=== PATIENT | female | born 1935 | race Caucasian/White ===

== ENCOUNTER 2018-10-24 06:01 | Observation (INO) ==
--- NOTE | 2018-10-15 10:39 | XRay Report ---
XR chest 2V routine HISTORY: pre-op m51.36 COMPARISON: None. FINDINGS: The heart is normal in size. No pleural effusions. No pneumothorax. The right lung is clear . Small linear density at the left lung base favor subsegmental atelectasis or scarring. Otherwise, t he left lung is clear. IMPRESSION: No acute process. Electronically signed by: Franklyn Gaxiola M.D. 10/15/2018 10:38 AM
[2018-10-15 10:46] LABS: Basophils # (auto) 0.02 K/uL (0-0.2); Basophils % (auto) 0.3 %; Eosinophils # (auto) 0.03 K/uL (0-0.5); Eosinophils % (auto) 0.5 %; Hematocrit (blood only) 36.2 % (37-47); Hemoglobin 11.8 g/dL (12.0-16.0); Immature Granulocytes # (auto) 0.01 K/uL (0.00-0.02); Immature Granulocytes % (auto) 0.2 %; Lymphocytes # (auto) 1.25 K/uL (1.2-3.4); Lymphocytes % (auto) 19.8 %; Mean Corpuscular Hgb Conc 32.6 g/dL (32-36); Mean Corpuscular Volume 87.2 fL (80-100); Mean Platelet Volume 9.2 fL (7.4-10.4); Monocytes % (auto) 6.3 %; Neutrophils # (auto) 4.61 K/uL (1.4-6.5); Neutrophils % (auto) 72.9 %; Platelet Count 338 K/uL (130-400); RDW Coefficient of Variation 16.1 % (11.5-14.5); RDW Standard Deviation 51.8 fL (36.4-46.3); Red Blood Count 4.15 M/uL (4.2-5.4); White Blood Count 6.32 K/uL (4.8-10.8)
[2018-10-15 10:55] LABS: Partial Thromboplastin Time 25.8 Seconds (21.0-31.0); Prothrombin Time 9.9 Seconds (9.0-12.0)
[2018-10-15 13:53] LABS: BUN Creatinine Ratio 12.3 (10-20); Calcium 9.3 mg/dl (8.5-10.1); Creatinine Clr Calc Pharmacy 38.8 ml/min; Est GFR (African American) 59.6; Est GFR (Non-African American) 51.4; Potassium 4.2 mmol/L (3.5-5.1)
--- NOTE | 2018-10-16 11:38 | Anesthesiology Consultation ---
Date of Service October 16, 2018 Assessment & Plan (1) Encounter for pre-operative examination: Chart Review Chart Review: Acceptable Risk for Surgery and Patient NOT seen in Pre Admission Testing Consults Requested none History Surgery Operation Date: 10/24/18 07:30 Proposed Procedures p L3-L4, L4-L5 Laminectomy - Ignacio Nolen DO Height/Weight Height: 5 ft 3 in Weight: 67.132 kg Allergies Allergy/AdvReac Type Severity Reaction Status Date / Time latex Allergy Unknown Rash Verified 10/15/18 11:38 Penicillins Allergy Unknown Rash Verified 10/15/18 11:38 pollen extracts Allergy Unknown STUFFY Verified 10/15/18 11:38 NOSE, WATER EYES Medications Home Medications Medication Instructions Recorded Confirmed Last Taken calcium carbonate 600 mg calcium 600 mg PO DAILY tab 08/06/18 10/15/18 Unknown (1,500 mg) tablet ergocalciferol (vitamin D2) 50,000 50,000 units PO MONTHLY cap 08/06/18 10/15/18 Unknown unit capsule atorvastatin 40 mg tablet 40 mg PO DAILY 90 Days #90 tab 09/05/18 10/15/18 Unknown zolpidem 10 mg tablet 10 mg PO HS #30 tab 09/24/18 10/15/18 Unknown hydromorphone 4 mg PO BID PRN 10/15/18 10/15/18 Unknown levothyroxine 50 mcg PO QAM 10/15/18 10/15/18 Unknown multivitamin 1 cap PO DAILY 10/15/18 10/15/18 Unknown omeprazole 20 mg PO QAM 10/15/18 10/15/18 Unknown Past Medical History Medical History Acid reflux Borderline diabetes History of bladder cancer Hyperlipidemia Spinal stenosis Thyroid disease Past Family History Family History Father Leukemia Brother Skin cancer Prostate cancer Lymphoma Malignant neoplasm of eye Sister Malignant neoplasm of eye Mother Diabetes Family/Other Cancer Past Surgical History Surgical History History of bladder surgery History of blepharoplasty History of colonoscopy Hx of cataract removal with insertion of prosthetic lens R AND L Hx of section Social History Smoking Status: Never smoker Do You Dip or Chew Tobacco: No Hx Alcohol Use: Yes (NONE OVER THE LAST 3 - 4 WEEKS) alcohol intake frequency: 0-2 drinks per day Hx Substance Use: No substance use type: prescription drug Testing Laboratory Results 10/15/18 09:39 10/15/18 09:39 PT 9.9 Seconds (9.0-12.0) 10/15/18 09:39 INR 1.0 (0.9-1.1) 10/15/18 09:39 APTT 25.8 Seconds (21.0-31.0) 10/15/18 09:39 Electrocardiogram Date: 10/15/18 Findings: + NSR @ (72) Chest X-Ray Date: 10/15/18 Findings: + NAD
--- NOTE | 2018-10-22 19:10 | Consultation Report ---
DATE OF ADMISSION: 10/24/2018 CHIEF COMPLAINT: Lower extremity difficulty, paresthesias, numbness and tingling. HISTORY OF PRESENT ILLNESS: Isha is delightful. She is 83. She is miserable, can barely function, stand, walk or even sitting. She is having semi-urgent surgery on the . PAST MEDICAL HISTORY: Bladder CA, usual childhood diseases. No high cholesterol. No hypertension, COPD. PAST SURGICAL HISTORY: , bladder surgery. ALLERGIES: LATEX, PENICILLIN. FAMILY HISTORY: Diabetes. SOCIAL HISTORY: , 2 drinks daily. No tobacco. Active lifestyle up until this pain. REVIEW OF SYSTEMS: Denies any fevers, sweats, chills, weight loss or gain. No chest pain, palpitations. No nausea, vomiting. No urgency, frequency, memory loss. Admits to joint pain, weakness, cramping and muscle pain. MEDICATIONS: Lipitor, vitamin D, multivitamin, calcium, omeprazole: PHYSICAL EXAMINATION: GENERAL: She is 5 feet 3 inches, 149 pounds. She is in distress. HEENT: Normal. VITAL SIGNS: Blood pressure 130/80, pulse 80, respirations 16. CARDIAC: Normal S1, S2, no S3. LUNGS: Clear to auscultation. No rales, rhonchi, wheezing. ABDOMEN: Soft, nontender. NEUROLOGIC: She has weakness in the right hand side of her quadriceps. She has decreased knee jerk reflexes. She has pain with flexion and extension. She has a limp with ambulation. IMPRESSION: Severe stenosis of the spine. PLAN: Includes a lumbar spine laminectomy L3-L5, lumbar spine on 10/24/2018.
[~2018-10-24 06:01] MED LIST: CEFAZOLIN 2000MG 2,000 MG/15 ML SYR IV SCH; CEFAZOLIN: ALLERGY NOTED TO ORDERED MEDICATION SCH; LR 15ML/HR IV SCH; SODIUM CHLORIDE 0.9% 1,000 ML IV SCH
[2018-10-24] MEDS ORDERED: LIDOCAINE HCL 2% 2 ML VIAL/AMP(20MG/ML) INFIL ONE (07:00)
[2018-10-24] MEDS ORDERED: DEXAMETHASONE SOD INJ 4 MG/ML VIAL ONE (07:00)
[2018-10-24] MEDS ORDERED: fentaNYL citrate 100 MCG/2 ML VIAL ONE (07:00)
[2018-10-24] MEDS ORDERED: NEOSTIGMINE METHYLSULFATE 5 MG/5 ML SYR ONE (07:00)
[2018-10-24] MEDS ORDERED: GLYCOPYRROLATE 0.2 MG/ML VIAL ONE (07:00)
[2018-10-24] MEDS ORDERED: PROPOFOL IV EMULSION 10 MG/ML 20 ML VIAL IV ONE (07:00)
[2018-10-24] MEDS ORDERED: ONDANSETRON INJ 2 MG/ML 2 ML VIAL ONE (07:00)
[2018-10-24] MEDS ORDERED: VANCOMYCIN HCL 1000MG/20ML VIAL ONE (07:03)
[2018-10-24] MEDS ORDERED: THROMBIN FOR SOLN 20000 UNIT KIT ONE ×2 (07:04→07:05)
[2018-10-24] MEDS ORDERED: BUPIVACAINE/EPINEPHRINE 0.5% MPF 1:200,000 30 ML VIAL ONE (07:04)
[2018-10-24] MEDS ORDERED: BACITRACIN INJ 50,000 UNIT VIAL ONE (07:04)
[2018-10-24] MEDS ORDERED: GELATIN SPONGE SZ 100 ONE (07:04)
--- NOTE | 2018-10-24 07:07 | History & Physical Bridge Note ---
Date of Service October 24, 2018 History & Physical Bridge Note I have examined the patient, reviewed the History & Physical and in the interval since the performance of the History & Physical I have noted the following changes of clinical significance: no changes noted
[2018-10-24] MEDS ORDERED: CEFAZOLIN 2,000 MG/15 ML IV PUSH IV ONE (07:13)
--- NOTE | 2018-10-24 07:27 | XRay Report ---
XR chest 1V portable CLINICAL HISTORY: rales on exam dyspnea COMPARISON STUDY: 10/15/2018 FINDINGS: Slight interstitial prominence left base. Lungs otherwise appear clear. Diaphragms are smoo th. IMPRESSION: Slight interstitial prominence left base. Otherwise negative study. The above report was generated using voice recognition software. It may contain grammatical, syntax or spelling errors. Electronically signed by: Colton Cazares M.D. 10/24/2018 7:26 AM
[2018-10-24] MEDS ORDERED: ALBUT/IPRATROP 3MG/0.5MG NEB 3 ML VIAL NEB STA (08:14)
--- NOTE | 2018-10-24 08:31 | History & Physical Report ---
Date of Service October 24, 2018 Assessment & Plan (1) Hypoxia: - Admit to obs status, lumbar surgical intervention was cancelled. - Pt. has decreasing O2 sats -- dropping to 90-92%; denies shortness of breath, chest pain. - No history of chronic lung disease. - CXR showed slight interstitial prominence of the left base, was otherwise negative. - CT chest showed mild bronchial wall thickening and endobronchial debris, cysts, consider chronic aspiration; multiple pulm nodules measuring up to 11 mm. - TTE showed preserved EF, no significant valvular abnormalities; BNP was within normal limits. - EKG with NSR, anterolateral T wave changes. - Pulmonary consulted; plan for overnight pulse ox study and 2-step test prior to discharge. Will also need PFTs early next week and outpatient appointment for further evaluation. Also recommending labs to look for sarcoidosis, other autoim mune studies (2) Pulmonary nodules: - Multiple pulmonary nodules noted on CT of chest. - Pulm consulted for recs; does have h/o bladder cancer. (3) Lumbar stenosis: - Planned lumbar procedure today, cancelled due to acute changes. - Will need follow up with Dr. Nolen to re-schedule procedure. (4) Hypothyroidism: - Continue Levothyroxine 50 mcg daily. - TSH is 1.23. (5) Vitamin D deficiency: - Vit D monthly replacement. (6) GERD without esophagitis: - PPI daily. (7) HLD (hyperlipidemia): - Continue statin as prescribed. (8) Diabetes mellitus type II, controlled: - Most recent A1C was 6.6 in May 2018. - Will hold SSI coverage/gluc checks and monitor AM glucose levels. - Repeat A1C is 6.7. (9) Insomnia: - Continue Ambien 10 mg qhs as prescribed. -continue trazodone (10) Bladder cancer: - History of bladder cancer, s/p bladder surgery. - Pulm nodules noted on CT chest -- will need close follow up. (11) DVT prophylaxis: - SCDs; hold pharmacologic ppx for possible procedure. Dispo: Obs status, med/surg with tele for evaluation of hypoxia. History of Present Illness Chief Complaint: Hypoxia Primary Care Provider: Shaggy Carlin MD Mrs. Kaufman is an 83 year old female with past medical history of GERD, DM, HLD, Hypothyroidism, Bladder cancer who presented for a planned lumbar procedure with Dr. Nolen. Pt. was noted to have low oxygen saturations during pre op evaluation. O2 sat decreasing to 90-92% on room air. Pt. denies chest pain, SOB at rest or with exertion, lightheadedness, palpitations, cough, N/V, diarrhea or constipation, dysuria or hematuria. She had a recent URI with nasal congestion 6-8 weeks ago but symptoms resolved with abx treatment. Denies h/o tobacco abuse, chronic lung disease. Allergies Allergy/AdvReac Type Severity Reaction Status Date / Time latex Allergy Unknown Rash Verified 10/24/18 06:22 Penicillins Allergy Unknown Rash Verified 10/24/18 06:22 pollen extracts Allergy Unknown STUFFY Verified 10/24/18 06:22 NOSE, WATER EYES Home Medications Home Medications Medication Instructions Recorded Confirmed Type calcium carbonate 600 mg calcium 600 mg PO DAILY tab 08/06/18 10/24/18 History (1,500 mg) tablet ergocalciferol (vitamin D2) 50,000 50,000 units PO MONTHLY cap 08/06/18 History unit capsule atorvastatin 40 mg tablet 40 mg PO DAILY 90 Days #90 tab 09/05/18 10/24/18 Rx hydromorphone 4 mg PO BID PRN 10/15/18 10/24/18 History levothyroxine 50 mcg PO QAM 10/15/18 10/24/18 History multivitamin 1 cap PO DAILY 10/15/18 10/24/18 History omeprazole 20 mg PO QAM 10/15/18 10/24/18 History zolpidem 10 mg tablet 10 mg PO HS #30 tab 10/22/18 10/24/18 Rx trazodone 100 mg PO HS 10/25/18 10/25/18 History Past Med/Surg History Medical History Acid reflux Borderline diabetes History of bladder cancer Hyperlipidemia Spinal stenosis Thyroid disease Surgical History History of blepharoplasty History of colonoscopy History of bladder surgery Hx of cataract removal with insertion of prosthetic lens R AND L Hx of section Family History Father Leukemia Brother Skin cancer Prostate cancer Lymphoma Malignant neoplasm of eye Sister Malignant neoplasm of eye Mother Diabetes Family/Other Cancer Social History Preferred Language: Tajik Communication Ability: Effective 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 Beliefs That Will Affect Care: None marital status: Current Living Situation: Spouse current occupational status: retired Other Information That Helps Us Care for You: No Feels Safe at Home: Yes Safety Concerns: Feels Safe At This Time Smoking Status: Never smoker Do You Dip or Chew Tobacco: No ; Second Hand Exposure: No ; Hx Alcohol Use: No (NONE OVER THE LAST 3 - 4 WEEKS) Hx Substance Use: No Childhood Exposure to Second-Hand Smoke: No caffeine: Yes Dental Care, Regularly: Yes Physical Activity Frequency: 1-2 Times per Week Seatbelt Use: always Sunscreen Use: Yes Review of Systems Review of Systems: All systems reviewed & are unremarkable except as noted in HPI & below Constitutional: no fever, no chills, no fatigue and no weakness Respiratory: no cough, no dyspnea, no dyspnea on exertion and no wheezing Cardiovascular: no chest pain, no palpitations, no lightheadedness and no edema Gastrointestinal: no abdominal pain, no nausea, no vomiting and no constipation Genitourinary: no difficulty urinating Musculoskeletal: + back pain; no joint pain Integumentary: no non-healing lesions Neurologic: + radiating pain (Down both legs ) Physical Exam Physical Exam: General: Resting comfortably HEENT: NC/AT; PERRLA with EOMI; [place] conjunctiva, MMM. No erythema of posterior pharynx Neck: Supple and nontender Cardiac: RRR Lungs: on room air; CTA bilaterally Abdomen: Bowel normoactive X 4; Nontender to palpation Extremities: Warm. No edema present Neuro: No focal weakness Skin: No rash Results & Data Vital Signs (Past 12 Hours) Vital Signs Temp Pulse Resp BP Pulse Ox 10/24/18 06:30 36 C L 79 20 135/74 92 Diagnostic Findings XR chest 1V portable CLINICAL HISTORY: rales on exam dyspnea COMPARISON STUDY: 10/15/2018 FINDINGS: Slight interstitial prominence left base. Lungs otherwise appear clear. Diaphragms are smooth. IMPRESSION: Slight interstitial prominence left base. Otherwise negative study. Code Status & VTE Plan Code Status FULL CODE Supervising Physician Co-Signing Physician Notes PA Supervision Note: I personally saw and examined the patient. I verified all toth points and agree with PRABHA Bradshaw with the following exceptions and/or additions: Pt had cold symptoms about 6 weeks ago and was treated with prednisone. No fevers or cough since then. Is a lifelong non-smoker, no second hand smoke exposure or toxic fumes. Denies CP or SOB. Has been very sedentary the last 3-4 weeks wit her back pain. No leg pain or swelling. No h/o heart or lung issues. Review of outpt chart shows her POx is usually at 98% on room air Vitals reviewed anicteric sclerae RRR no mgr Lungs with bibasilar rales going to mid lung beth bilat, no wheezing Adb +BS soft NT ND Ext no edema or calf tenderness 83 yo female here with new onset acute hypoxic respiratory insufficiency and bibasilar rales -plan as above PG Care Time/CCT Total # of Minutes Spent Total Time Spent with Patient: Total time spent is greater than 50% in coordination of care (as documented) at patient's floor/unit and/or counseling patient:
[2018-10-24] MEDS ORDERED: MAGNESIUM HYDROXIDE SUSP 30 ML UDC PO PRN (10:10)
[2018-10-24] MEDS ORDERED: ONDANSETRON INJ 2 MG/ML 2 ML VIAL IV PRN (10:10)
[2018-10-24] MEDS ORDERED: ACETAMINOPHEN 325 MG TAB PO PRN (10:10)
[2018-10-24] MEDS ORDERED: POLYETHYLENE (MIRALAX) 17 GM PACK PO PRN (10:10)
[2018-10-24 10:35] LABS: Hemoglobin 11.3 g/dL (12.0-16.0); Mean Corpuscular Hgb Conc 32.3 g/dL (32-36); Mean Corpuscular Volume 89.1 fL (80-100); Mean Platelet Volume 8.7 fL (7.4-10.4); Platelet Count 377 K/uL (130-400); RDW Standard Deviation 52.1 fL (36.4-46.3); Red Blood Count 3.93 M/uL (4.2-5.4); White Blood Count 7.78 K/uL (4.8-10.8)
[2018-10-24 11:00] LABS: Estimated Average Glucose 146 mg/dl; Hemoglobin A1C 6.7 % (4.5-5.6)
[2018-10-24 11:12] LABS: Albumin Level 3.1 gm/dl (3.4-5.0); BUN Creatinine Ratio 13.8 (10-20); Calcium 8.6 mg/dl (8.5-10.1); Creatinine Clr Calc Pharmacy 45.4 ml/min; Est GFR (African American) 71.4; Est GFR (Non-African American) 61.6; Potassium 3.7 mmol/L (3.5-5.1)
[2018-10-24 11:15] LABS: Albumin Globulin Ratio 0.9 (0.9-2); Bilirubin,Total 0.4 mg/dl (0.2-1); Globulin 3.3 gm/dl (2.5-4.0); Total Protein 6.4 gm/dl (6.4-8.2)
[2018-10-24] MEDS: MoRPHine SULFATE 2 MG/ML CARP IV PRN ×3 (11:23→20:12)
[2018-10-24] MEDS ORDERED: OPTIRAY 320 125ml IV PRN (13:03)
[2018-10-24] MEDS ORDERED: PHENYLEPHRINE HCL 20 MG in DEXTROSE 5% 500 ML IV SCH (13:15)
--- NOTE | 2018-10-24 13:16 | CT Scan Report ---
CT angio chest PE protocol CLINICAL HISTORY: 83 years-old Female presenting with shortness of breath, abnormal respiratory sound s on exam, clinical concern for pulmonary embolus. TECHNIQUE: Multidetector CT angiography of the chest was performed after administration of intravenou s contrast. 3-D volumetric and/or maximum intensity projection (MIP) images were subsequently reconst ructed for review. IV contrast: 77 mL of Optiray 320. One or more dose lowering techniques were used consistent with the principles of ALARA (as low as reasonably achievable), including automatic exposu re control, mA or kV adjustment to individual patient size, and/or use of iterative reconstruction. COMPARISON: Chest x-ray performed earlier the same day. CT DOSE (mGy.cm): The estimated cumulative dose is 230.42 mGy.cm. 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 Pulmonary vasculature: The study is adequate for assessment of the pulmonary vascular tree. No filling defect within the pul monary arteries to suggest embolus. Main pulmonary artery is not enlarged. No flattening of the inter ventricular septum. No intracardiac filling defect. No reflux of contrast into the hepatic veins. Remaining chest: Soft tissues: Normal thyroid and thoracic inlet. No axillary, supraclavicular, mediastinal, or hilar lymphadenopathy. Mild atherosclerosis of the aortic arch. Normal heart size. Coronary artery calcific ation. No pericardial or pleural effusion. Small hiatal hernia. Lungs and airways: No pneumothorax. Central airways patent. Mild lower lobe bronchial wall thickening and trace subsegmental endobronchial debris. Few pulmonary cysts or emphysematous changes in the low er lobes. Solid 5 mm peripheral right lower lobe nodule (series 4 image 101). Subpleural solid 6 mm p osterior basal right lower lobe nodule (series 4 image 91). Ovoid solid 11 mm nodule in the anterior segment of the right upper lobe (series 4 image 156). Numerous additional scattered smaller solid pul monary nodules bilaterally. Additional dependent changes in the bilateral lower lobes likely atelecta sis. Mild mosaic attenuation. Trace interlobular septal thickening at the lung bases. Respiratory mot ion artifact mildly degrades evaluation of the lung parenchyma. Musculoskeletal: Degenerative changes of the spine. IMPRESSION: 1. No evidence of pulmonary embolus. 2. Mild lower lobe predominant bronchial wall thickening and trace subsegmental endobronchial debris could suggest bronchitis or chronic aspiration. No focal infiltrate to suggest pneumonia. 3. Multiple solid bilateral pulmonary nodules measuring up to 11 mm. Follow-up per [employer] y 2017 recommendations below. 4. Small hiatal hernia. Electronically signed by: Carlo Duvall M.D. 10/24/2018 1:14 PM
--- NOTE | 2018-10-24 16:08 | Pulmonary Consultation ---
Date of Consultation October 24, 2018 Assessment & Plan (1) Interstitial lung disease: Interstitial lung disease is suggested based upon exam and CAT scan findings. She is without symptoms. She has mild hypoxia. Plan is as follows: 1. Sed rate, NAYANA screen, RA, TAO, hypersensitivity pneumonitis screen 2. My office will arrange for complete pulmonary function test to be done as soon as possible. We do want to be able to clear the patient as soon as feasible because of her pain. 3. I will follow-up as an outpatient. (2) Hypoxia: The etiology of the hypoxia is not clear. Her exam is definitely abnormal and suggestive for interstitial lung disease. The plan is as follows: 1. Advise overnight pulse oximetry study on room air 2. Arrange for a two-step prior to discharge. It is suspected she likely will be discharged tomorrow. (3) Pulmonary nodules: Will need a follow-up CAT scan in 3 to 4 months. My office will arrange this. History of Present Illness Attending Physician: Ignacio Nolen, History of Present Illness Pulmonary consultation is requested regarding hypoxia. Patient is an 83-year-old female who is being prepared today to undergo low back surgery. For the past several weeks she has had a fairly sudden onset of pain in the low back extending to the right hip and down to the right knee. She was found to have severe stenosis of the spine. The surgery was to be today. She was found to have oxygen saturations on room air between 90 and 92%. The surgery was canceled. It was found that her saturation would come up to 97% with deep breathing. The patient denies shortness of breath. She denies ever having had any lung trouble before. She had been playing golf 3 times per week until recently when she developed the back pain. Earlier this summer she did a [place] Walk with her without any shortness of breath. She has no cough. There is been no sputum production or hemoptysis. She denies chest pains. She denies chills fevers or sweats. She is never been told of any lung problems. The patient has no history of smoking ever. 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 [place] did [place]. The patient and her live at the [facility]. She previously had been living in [place] for approximately 12 years until they moved back to [place] in 2018. She did not have any history of coccidiomycosis when she was out there. The patient does snore. There has been no observed apneas. She does have chronic insomnia. This started she states when she could no longer take hormonal replacement therapy for hot flashes. She has been on zolpidem and trazodone. Zolpidem is 10 mg nightly and the trazodone is 100 mg nightly. With these medication she would sleep through. Without them she would have difficulty falling asleep and staying asleep. She gets up at 6 AM. Her sleep has been more disrupted recently since having the back pain. Generally she was feeling refreshed and she rarely napped. Allergies Allergy/AdvReac Type Severity Reaction Status Date / Time latex Allergy Unknown Rash Verified 10/24/18 06:22 Penicillins Allergy Unknown Rash Verified 10/24/18 06:22 pollen extracts Allergy Unknown STUFFY Verified 10/24/18 06:22 NOSE, WATER EYES Home Medications Home Medications Medication Instructions Recorded Confirmed Type calcium carbonate 600 mg calcium 600 mg PO DAILY tab 08/06/18 10/24/18 History (1,500 mg) tablet ergocalciferol (vitamin D2) 50,000 50,000 units PO MONTHLY cap 08/06/18 10/24/18 History unit capsule atorvastatin 40 mg tablet 40 mg PO DAILY 90 Days #90 tab 09/05/18 10/24/18 Rx hydromorphone 4 mg PO BID PRN 10/15/18 10/24/18 History levothyroxine 50 mcg PO QAM 10/15/18 10/24/18 History multivitamin 1 cap PO DAILY 10/15/18 10/24/18 History omeprazole 20 mg PO QAM 10/15/18 10/24/18 History zolpidem 10 mg tablet 10 mg PO HS #30 tab 10/22/18 10/24/18 Rx Patient History Medical History Acid reflux Borderline diabetes History of bladder cancer Hyperlipidemia Spinal stenosis Thyroid disease Surgical History History of blepharoplasty History of colonoscopy History of bladder surgery Hx of cataract removal with insertion of prosthetic lens R AND L Hx of section Family History Father Leukemia Brother Skin cancer Prostate cancer Lymphoma Malignant neoplasm of eye Sister Malignant neoplasm of eye Mother Diabetes Family/Other Cancer Social History Preferred Language: Nauruan Communication Ability: Effective 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 Beliefs That Will Affect Care: None marital status: Current Living Situation: Spouse current occupational status: retired Other Information That Helps Us Care for You: No Feels Safe at Home: Yes Safety Concerns: Feels Safe At This Time Smoking Status: Never smoker Do You Dip or Chew Tobacco: No ; Second Hand Exposure: No ; Hx Alcohol Use: No (NONE OVER THE LAST 3 - 4 WEEKS) Hx Substance Use: No Childhood Exposure to Second-Hand Smoke: No caffeine: Yes Dental Care, Regularly: Yes Physical Activity Frequency: 1-2 Times per Week Seatbelt Use: always Sunscreen Use: Yes Review of Systems Review of Systems: General: Energy level has been good until her back pain recently. Denies chills fever sweats. No weight loss or weight gain. Neurologic: Only positive for pain down the right leg. Ophthalmic: Has had cataract surgery but otherwise negative ENT: Denies nasal or sinus symptoms Cardiac: Denies chest pain or palpitations Pulmonary: As noted in history of present illness GI: Denies heartburn nausea vomiting or diarrhea. She is having constipation since taking pain meds for the back pain. : Denies complaints. No hematuria. She does have a prior history of bladder cancer. Musculoskeletal: As noted in history of present illness Dermatologic: No rash Endocrine: No lymphadenopathy Physical Exam Physical Exam: The patient is a pleasant 83-year-old female who was cooperative alert and oriented. She was in no distress at rest. Weight is 68.2 kg. BMI is 26.6. Pupils were reactive. Implants were noted from prior cataract surgery. Nares are clear. Mouth exam is unremarkable. No erythema or exudate noted. Pharynx is a Mallampati grade 2. No lymph nodes are palpable. Cardiac rate 68/min. Rhythm regular. Blood pressure 144/84. The chest was of normal expansion and development. Auscultation of the lung beth reveals rales posteriorly bilaterally in the lower lung beth. These are dry in character. Respiratory rate 18 breaths/min at rest. Saturation at the time of my exam was 94% on room air at rest. It was checked again 30 min utes later and it was 92% on room air. Abdomen is soft. Bowel sounds normal. There was no tenderness to palpation, masses, or organomegaly. Extremities showed no cyanosis clubbing or edema. Results & Data Vital Signs (Past 12 Hours) Vital Signs Temp Pulse Pulse Resp BP Pulse Ox 10/24/18 15:56 36.8 C 68 18 144/84 H 93 10/24/18 15:00 73 10/24/18 10:45 74 10/24/18 10:10 36.9 C 81 16 145/79 H 92 10/24/18 08:27 69 16 96 10/24/18 06:30 36 C L 79 20 135/74 92 Laboratory Results CBC shows a white count of 7.78. Hemoglobin mildly decreased 11.3. Platelets 377,000. Prior hemoglobin on 10/15/2018 was 11.8. Electrolytes show sodium 140, potassium 3.7, chloride 107, bicarb 27. BUN 12 with creatinine 0.87. Blood sugar 116. Hemoglobin A1c 6.7. Liver functions normal. proBNP 173. Albumin 3.1 and total protein 6.4. TSH 1.23. Diagnostic Findings Chest x-ray done 10/15/2018 showed a linear density at the left lung base suggesting subsegmental atelectasis. No acute process noted. Chest x-ray done 10/24/2018 showed slight interstitial prominence left base. Not significantly changed from prior. CT angio of the chest showed no evidence of pulmonary embolic disease. There were 3 lung nodule seen in the right lung. The largest measured up to 11 mm in the right upper lobe and it was somewhat oblong. In the right lower lobe are a 5 mm and 6 mm nodule. There is no prior study available for comparison. Several small cystic changes are noted in the lower lobes. Mild mosaic attenuation noted. At the lung bases are areas of subpleural reticular changes with some interlobular septal thickening noted. PG Care Time/CCT Total # of Minutes Spent Total Time Spent with Patient: Total time spent is greater than 50% in coordination of care (as documented) at patient's floor/unit and/or counseling patient:
[2018-10-24] MEDS ORDERED: ZOLPIDEM TARTRATE 10 MG TAB PO SCH (21:00)
[2018-10-25] MEDS ORDERED: TRAZODONE HCL 100 MG TAB PO PRN (01:18)
[2018-10-25] MEDS ORDERED: LEVOTHYROXINE SODIUM 50 MCG TABLET PO SCH (06:30)
[2018-10-25 06:37] LABS: Hematocrit (blood only) 35.6 % (37-47); Hemoglobin 11.6 g/dL (12.0-16.0); Mean Corpuscular Hgb Conc 32.6 g/dL (32-36); Mean Corpuscular Volume 89.2 fL (80-100); Mean Platelet Volume 8.8 fL (7.4-10.4); Platelet Count 393 K/uL (130-400); RDW Coefficient of Variation 16.3 % (11.5-14.5); RDW Standard Deviation 54.1 fL (36.4-46.3); Red Blood Count 3.99 M/uL (4.2-5.4)
[2018-10-25 07:01] LABS: Creatinine Clr Calc Pharmacy 42.5 ml/min; Est GFR (African American) 65.9; Est GFR (Non-African American) 56.8; Potassium 3.9 mmol/L (3.5-5.1)
[2018-10-25] MEDS: MoRPHine SULFATE 2 MG/ML CARP IV PRN (07:41)
[2018-10-25] MEDS ORDERED: PANTOprazole 40 MG TAB PO SCH (09:00)
[2018-10-25] MEDS ORDERED: ATORVASTATIN 40 MG TAB PO SCH (09:00)
--- NOTE | 2018-10-25 09:41 | Progress Note ---
DATE: 10/25/2018 SUBJECTIVE: She is alert and oriented this morning. Her pain is controlled, although when she comes off her medication, it is fairly significant. She does appear comfortable here in bed rest. I did gain some insight on to the patient this morning and she was an avid golfer up until few weeks ago, so this immobility and pain is quite new phenomenon for her. OBJECTIVE: At this morning, vital signs are stable. Blood pressure controlled. Pulse regular. Afebrile. O2 sat 93 on room air. She has no pain with flexion, extension of her knee. No true weakness. Skin and vascularity intact. IMPRESSION: Spinal stenosis, lumbar spine. Other comorbidities including interstitial lung disease, diabetes mellitus, hypoxia. PLAN: At this point in time, she looks medically stable. I would imagine she will get to go home later on today. We will see her back as an outpatient in next week to 10 days. We will need to reschedule her. It will not be just putting her on the schedule a real quick. We will have to really evaluate her and make sure she is worthy and surgery once again is indicated. So long story short, she may go home to see me back in the office in approximately 10 days.
--- NOTE | 2018-10-25 15:06 | Discharge Summary ---
Date of Service October 25, 2018 Admission HPI Per Admitting Provider Mrs. Kaufman is an 83 year old female with past medical history of GERD, DM, HLD, Hypothyroidism, Bladder cancer who presented for a planned lumbar procedure with Dr. Nolen. Pt. was noted to have low oxygen saturations during pre op evaluation. O2 sat decreasing to 90-92% on room air. Pt. denies chest pain, SOB at rest or with exertion, lightheadedness, palpitations, cough, N/V, diarrhea or constipation, dysuria or hematuria. She had a recent URI with nasal congestion 6-8 weeks ago but symptoms resolved with abx treatment. Denies h/o tobacco abuse, chronic lung disease. Admission Exam Per Admitting Provider General: Resting comfortably HEENT: NC/AT; PERRLA with EOMI; [place] conjunctiva, MMM. No erythema of posterior pharynx Neck: Supple and nontender Cardiac: RRR Lungs: on room air; CTA bilaterally Abdomen: Bowel normoactive X 4; Nontender to palpation Extremities: Warm. No edema present Neuro: No focal weakness Skin: No rash Principal Diagnosis Hypoxia, Abnormal CT chest findings Discharge Exam General: Resting comfortably HEENT: NC/AT; PERRLA with EOMI; [place] conjunctiva, MMM. No erythema of posterior pharynx Neck: Supple and nontender Cardiac: RRR Lungs: on room air; rales noted in bilat lower lung bases. Abdomen: Bowel normoactive X 4; Nontender to palpation Extremities: Warm. No edema present Neuro: No focal weakness Skin: No rash Discharge Data Allergies Allergy/AdvReac Type Severity Reaction Status Date / Time latex Allergy Unknown Rash Verified 10/24/18 06:22 Penicillins Allergy Unknown Rash Verified 10/24/18 06:22 pollen extracts Allergy Unknown STUFFY Verified 10/24/18 06:22 NOSE, WATER EYES Consultations 10/24/18 11:37 Consult Orthopedic Surgery Routine 10/24/18 14:21 Consult Pulmonology Routine 10/25/18 08:05 Consult Cardiology Routine Procedures Performed Operation Date: 10/24/18 07:30 <No data on this case meets the specified criteria> Ordered Studies 10/24/18 09:10 CT angio chest PE protocol Urgent CXR Hospital Course (1) Hypoxia: Previously scheduled for lumbar procedure, cancelled due to hypoxia (O2 sats decreased to 90-92%) No history of chronic lung disease. CXR showed slight interstitial prominence of the left base, was otherwise negative. CT chest showed mild bronchial wall thickening and endobronchial debris, cysts, consider chronic aspiration; multiple pulm nodules measuring up to 11 mm. TTE showed preserved EF, no significant valvular abnormalities; BNP was within normal limits. EKG with NSR, anterolateral T wave changes. Pulmonary consulted, appreciate input. ESR was 34; NAYANA, RA, TAO, hypersensitivity pneumonitis screening pending. Will need to follow up next week for PFTs early next week followed by evaluation by Dr. Pinzon. Overnight pulse ox and 2 step did not qualify pt. for home oxygen; remained stable on room air during this admission. (2) V tach: Had episode of V tach in the morning on 10/25/18. Cardiology consulted, appreciate input. Will need outpatient lexiscan cardiac stress test this week for pre-op work up -- ordered nurse navigator consult. (3) Pulmonary nodules: Multiple pulmonary nodules noted on CT of chest. Pulm consulted for recs; does have h/o bladder cancer. (4) Lumbar stenosis: Planned lumbar procedure on 10/24, cancelled due to acute changes. Will need follow up with Dr. Nolen to re-schedule procedure. (5) Hypothyroidism: Continued Levothyroxine 50 mcg daily. TSH is 1.23. (6) Vitamin D deficiency: Vit D monthly replacement. (7) GERD without esophagitis: PPI daily. (8) HLD (hyperlipidemia): Continued statin as prescribed. (9) Diabetes mellitus type II, controlled: Most recent A1C was 6.6 in May 2018. Repeat A1C is 6.7. Encourage CCD as outpatient. (10) Insomnia: Continued Ambien & Trazodone. (11) Bladder cancer: History of bladder cancer, s/p bladder surgery. Pulm nodules noted on CT chest -- will need close follow up. (12) DVT prophylaxis: SCDs; held pharmacologic ppx. Discharged to home on 10/25/18. Total Time Total Time Spent Total Time Spent (In Minutes): >30 minutes Total Time Includes: Examination of the Patient, Discharge Planning, Medication Reconciliation, Communication With Other Providers and Other Discharge Plan Discharge Items Patient Disposition: Home - Self-Care Reason For Visit: Lumbar Spinal Stenosis, Degenerative Disc Discharge Diagnosis: Lumbar Stenosis, Abnormal CT lung findings Condition on Discharge: Fair Activity: As commented below Exercise/Sports: Wait until after follow-up appointment Non-emergency contact: Primary Care Provider, Surgeon and Supervisor Grips Call non-emergency contact if: you have any medication questions, your symptoms worsen, your pain is not controlled, your pain is worsening, your pain is unusual for you, your pain is concerning for you and you have a fever Follow-up/Referrals: Shaggy Carlin MD [Primary Care Provider] - Diet: Regular Addtl Attending Provider Instructions: 1. Abnormal CT chest findings * Outpatient PFTs will be scheduled early next week for evaluation. * You will need to follow up with Dr. Pinzon to discuss PFT results and pending laboratory tests. 2. Lumbar stenosis * An outpatient appointment will be scheduled with Dr. Nolen to discuss rescheduling surgery. 3. Ventricular Tachycardia * You will need to follow up with cardiology this week for a cardiac stress test. 4. Please schedule follow up with PCP in 1-2 weeks to discuss this admission and to obtain pre-op clearance. Pending Studies at Discharge: Yes Stand-Alone Forms: [facility] Medications and DC Order Prescriptions: New hydromorphone [Dilaudid] 4 mg tablet 4 mg PO BID PRN (Reason: pain) Qty: 20 RF: 0 Continued zolpidem 10 mg tablet 10 mg PO HS Qty: 30 RF: 0 calcium carbonate 600 mg calcium (1,500 mg) tablet 600 mg PO DAILY RF: 0 ergocalciferol (vitamin D2) 50,000 unit capsule 50,000 units PO MONTHLY RF: 0 atorvastatin 40 mg tablet 40 mg PO DAILY 90 Days Qty: 90 RF: 2 levothyroxine 50 mcg tablet 50 mcg PO QAM RF: 0 omeprazole 20 mg capsule,delayed release(DR/EC) 20 mg PO QAM RF: 0 multivitamin Capsule 1 cap PO DAILY RF: 0 trazodone 100 mg tablet 100 mg PO HS RF: 0 Discontinued hydromorphone 4 mg Tablet 4 mg PO BID PRN (Reason: Pain) RF: 0 Discharge Orders: Discharge Order (Routine); Ordered 10/25/18 Ordered By: Gladis Bennett Admission Data Admit Date/Time: 10/24/18 09:06 Attending Provider: Ignacio Nolen Admit Provider: Yamilet Steel Primary Care Provider: Shaggy Carlin Other Providers: Dante Pinzon ; Ignacio Nolen ; Oni Zimmer
--- NOTE | 2018-10-25 16:10 | Cardiology Consultation ---
Date of Consultation October 25, 2018 Assessment & Plan (1) Wide-complex tachycardia: Patient had an asymptomatic episode of wide complex tachycardia lasting a few seconds. Whether this represents ventricular tachycardia or an SVT with aberrancy is unclear based on the telemetry tracings. The overall morphology appears consistent with a right bundle branch block, and the intrinsic cord deflection is quite rapid. The overall QRS duration is relatively narrow as well. However, ventricular tachycardia cannot definitively be excluded based on the tracings available. She has normal LV systolic function and no symptoms consistent with coronary disease. I think this puts her in a category of patients were low risk for more significant ventricular arrhythmias. Her baseline EKG is essentially unremarkable. She does not appear to have significant conduction disease or widened QRS which would be consistent with a infiltrative process such as sarcoidosis. This could be a factor given her abnormal CT scan. She is undergoing a pulmonary evaluation which may shed more light on the topic. For completeness sake, I think we can perform a perfusion scan in the outpatient setting in order to exclude significant coronary disease. If that study were normal do not believe she requires any additional workup unless other tests suggest the presence sarcoidosis or other infiltrative process. In that setting a cardiac MRI may be of value. History of Present Illness Reason for Consultation: Wide complex tachycardia Requesting Physician: Milvia Attending Physician: Ignacio Nolen, DO History of Present Illness Patient is an 83-year-old woman with any known history of cardiac disease who was admitted in anticipation a back surgery for spinal stenosis. Patient has been experiencing symptoms right leg discomfort associated with activity over the past several weeks. In the immediate preoperative area the patient was noted to have relatively low oxygen saturations and her surgery was deferred in order to obtain a pulmonary evaluation. This evaluation involved staying overnight in the hospital on telemetry and oximetry. Early this morning the patient was noted to have wide complex rhythm on her telemetry lasting for a total of 19 seconds. Patient did not recall any symptoms associated with this event. Prior to her recent back difficulty she has been very active. She golfs and walks regularly without limiting symptoms. She did not report any symptoms of exertional chest discomfort or exertional dyspnea. She not endorse symptoms of dizziness or lightheadedness. She cannot recall suffering a syncopal episode. She has not had palpitations. She did not sleep well throughout the night with the use sedatives. She does not have orthopnea or paroxysmal nocturnal dyspnea. She not report any swelling in her lower extremities. Currently she has very minor discomfort in the right leg. With narcotic analgesics she has few symptoms. Allergies Allergy/AdvReac Type Severity Reaction Status Date / Time latex Allergy Unknown Rash Verified 10/24/18 06:22 Penicillins Allergy Unknown Rash Verified 10/24/18 06:22 pollen extracts Allergy Unknown STUFFY Verified 10/24/18 06:22 NOSE, WATER EYES Home Medications Home Medications Medication Instructions Recorded Confirmed Type calcium carbonate 600 mg calcium 600 mg PO DAILY tab 08/06/18 10/24/18 History (1,500 mg) tablet ergocalciferol (vitamin D2) 50,000 50,000 units PO MONTHLY cap 08/06/18 10/24/18 History unit capsule atorvastatin 40 mg tablet 40 mg PO DAILY 90 Days #90 tab 09/05/18 10/24/18 Rx levothyroxine 50 mcg PO QAM 10/15/18 10/24/18 History multivitamin 1 cap PO DAILY 10/15/18 10/24/18 History omeprazole 20 mg PO QAM 10/15/18 10/24/18 History zolpidem 10 mg tablet 10 mg PO HS #30 tab 10/22/18 10/24/18 Rx hydromorphone [Dilaudid] 4 mg PO BID PRN #20 tab 10/25/18 Rx trazodone 100 mg PO HS 10/25/18 10/25/18 History Patient History Medical History Acid reflux Borderline diabetes History of bladder cancer Hyperlipidemia Spinal stenosis Thyroid disease Surgical History History of blepharoplasty History of colonoscopy History of bladder surgery Hx of cataract removal with insertion of prosthetic lens R AND L Hx of section Family History Father Leukemia Brother Skin cancer Prostate cancer Lymphoma Malignant neoplasm of eye Sister Malignant neoplasm of eye Mother Diabetes Family/Other Cancer Social History Preferred Language: Arabic Communication Ability: Effective Credit Review Manager Required: No Beliefs That Will Affect Care: None marital status: Current Living Situation: Spouse current occupational status: retired Other Information That Helps Us Care for You: No Feels Safe at Home: Yes Safety Concerns: Feels Safe At This Time Smoking Status: Never smoker Do You Dip or Chew Tobacco: No ; Second Hand Exposure: No ; Hx Alcohol Use: No (NONE OVER THE LAST 3 - 4 WEEKS) Hx Substance Use: No Childhood Exposure to Second-Hand Smoke: No caffeine: Yes Dental Care, Regularly: Yes Physical Activity Frequency: 1-2 Times per Week Seatbelt Use: always Sunscreen Use: Yes Review of Systems Review of Systems: All systems reviewed & are unremarkable except as noted in HPI & below Physical Exam Physical Exam: She is alert and oriented x3. Mood affect appear normal. She answered all questions appropriately. HEENT: Sclerae are anicteric. Pupils are equal and reactive to light and accommodation. Extraocular movements were intact. Neuro: Cranial nerves intact Neck: Examination of the submandibular region did not reveal any significant lymphadenopathy. Carotids are palpable bilaterally and free of bruits on auscultation. There was no evidence of jugular venous distention. The thyroid was not enlarged. Lungs: Lungs are clear to auscultation with some occasional crackles in the bases bilaterally. There are no wheezes or rhonchi. She has normal respiratory effort without use of accessory muscles. There is normal pulmonary excursion. Cardiac: The rhythm was regular. S1 and S2 were normal. There are no murmurs on examination. The PMI was not markedly displaced on palpation. Abdomen: The abdomen was soft and nontender. Extremities: Patient has bilateral radial pulses that are equal in intensity. There is no evidence cyanosis or clubbing. There was no evidence of significant peripheral edema bilaterally. Skin: There are no rashes noted on examination today. Results & Data Vital Signs (Past 12 Hours) Vital Signs Temp Pulse Pulse Pulse Pulse Pulse Resp 10/25/18 16:00 37.0 C 68 78 18 10/25/18 12:00 37.0 C 78 18 10/25/18 09:01 112 H 97 H 79 10/25/18 07:27 36.7 C 68 18 Resp Resp Resp BP BP Pulse Ox Pulse Ox 10/25/18 16:00 121/73 127/72 93 10/25/18 12:00 127/72 93 10/25/18 09:01 16 16 16 93 10/25/18 07:27 121/73 93 Pulse Ox Pulse Ox 10/25/18 16:00 10/25/18 12:00 10/25/18 09:01 94 95 10/25/18 07:27 Laboratory Results Abnormal Lab Results 10/24/18 10/25/18 10/25/18 10:22 06:13 06:13 WBC 7.00 RBC 3.99 L Hgb 11.6 L Hct 35.6 L MCV 89.2 MCH 29.1 MCHC 32.6 RDW Std Deviation 54.1 H RDW Coeff of Jeb 16.3 H Plt Count 393 MPV 8.8 ESR 34 H Sodium 140 Potassium 3.9 Chloride 107 Carbon Dioxide 28 Anion Gap 5.0 BUN 14 Creatinine 0.93 Est Cr Clr Drug Dosing 42.5 Est GFR ( Amer) 65.9 Est GFR (Non-Af Amer) 56.8 BUN/Creatinine Ratio 15.0 Glucose 115 H POC Glucose Calcium 9.0 10/25/18 08:13 WBC RBC Hgb Hct MCV MCH MCHC RDW Std Deviation RDW Coeff of Jeb Plt Count MPV ESR Sodium Potassium Chloride Carbon Dioxide Anion Gap BUN Creatinine Est Cr Clr Drug Dosing Est GFR ( Amer) Est GFR (Non-Af Amer) BUN/Creatinine Ratio Glucose POC Glucose 114 H Calcium Diagnostic Findings Echocardiogram obtained yesterday revealed preserved LV systolic function. No significant valvular heart disease Chest CT suggests interstitial prominence and some nodular lesions in the bases. Chest x-ray obtained at the time of admission with some interstitial prominence but no other acute findings ECG Additional Comments: With sinus rhythm with nonspecific ST and T-wave changes PG Care Time/CCT Total # of Minutes Spent Total Time Spent with Patient: Total time spent is greater than 50% in coordination of care (as documented) at patient's floor/unit and/or counseling patient:
[2018-10-31 02:13] LABS: Angiotensin Converting Enzyme 24 U/L (9-67); Anti Nuclear Antibody Screen POSITIVE (NEGATIVE); Anti-Centromere Ab <1.0 NEG AI (<1.0 NEG); Anti-SS-A <1.0 NEG AI (<1.0 NEG); Anti-SS-B <1.0 NEG AI (<1.0 NEG); Aspergillus fumigatus NEGATIVE (NEGATIVE); Complement C3 126 MG/DL; DNA ds Crithidia NEGATIVE (NEGATIVE); RNP Antibody <1.0 NEG AI (<1.0 NEG); Rheumatoid Factor < 14 IU/ML (<14); Scleroderma Anti Scl-70 Ab <1.0 NEG AI (<1.0 NEG); Sm Antibody <1.0 NEG AI (<1.0 NEG)
== END 2018-10-25 16:54 | disposition home or self-care (01) ==
LOC: 2N 06:01 → ASU 06:01

== ENCOUNTER 2018-11-10 08:10 | Inpatient (IN) ==
--- NOTE | 2018-11-07 09:34 | Anesthesiology Consultation ---
Date of Service November 07, 2018 Assessment & Plan Chart Review Chart Review: Acceptable Risk for Surgery Consults Requested none History Surgery Operation Date: 11/10/18 09:50 Proposed Procedures p L3-L4, L4-L5 Laminectomy - Ignacio Nolen DO Allergies Allergy/AdvReac Type Severity Reaction Status Date / Time latex Allergy Mild Rash Verified 11/07/18 09:23 Penicillins Allergy Mild Rash Verified 11/07/18 09:23 pollen extracts Allergy Mild STUFFY Verified 11/07/18 09:23 NOSE, WATER EYES Medications Home Medications Medication Instructions Recorded Confirmed Last Taken calcium carbonate 600 mg calcium 600 mg PO DAILY tab 08/06/18 11/07/18 10/23/18 12:00 (1,500 mg) tablet ergocalciferol (vitamin D2) 50,000 50,000 units PO MONTHLY cap 08/06/18 11/07/18 10/23/18 12:00 unit capsule atorvastatin 40 mg tablet 40 mg PO DAILY 90 Days #90 tab 09/05/18 11/07/18 10/23/18 12:00 levothyroxine 50 mcg PO QAM 10/15/18 11/07/18 10/24/18 05:00 multivitamin 1 cap PO DAILY 10/15/18 11/07/18 10/23/18 12:00 omeprazole 20 mg PO QAM 10/15/18 11/07/18 10/24/18 05:00 zolpidem 10 mg tablet 10 mg PO HS #30 tab 10/22/18 11/07/18 10/23/18 12:00 hydromorphone [Dilaudid] 4 mg PO BID PRN #20 tab 10/25/18 11/07/18 Unknown trazodone 100 mg PO HS 10/25/18 11/07/18 Unknown Past Medical History Medical History Acid reflux Borderline diabetes History of bladder cancer TUMOR REMOVED (NO PROBLEMS SINCE 2003) Hyperlipidemia Spinal stenosis Thyroid disease Past Family History Family History Father Leukemia Brother Skin cancer Prostate cancer Lymphoma Malignant neoplasm of eye Sister Malignant neoplasm of eye Mother Diabetes Family/Other Cancer Past Surgical History Surgical History History of bladder surgery History of blepharoplasty History of colonoscopy History of cystoscopy MULTIPLE TIMES Hx of cataract removal with insertion of prosthetic lens R AND L Hx of section Social History Smoking Status: Never smoker Hx Alcohol Use: No (NONE OVER THE LAST 3 - 4 WEEKS) alcohol intake frequency: 0-2 drinks per day Hx Substance Use: No substance use type: prescription drug Testing Electrocardiogram Date: 10/24/18 Findings: + NSR @ (74/min) and + NSST changes Chest X-Ray Date: 10/24/18 Findings: + NAD (slight intestitiial prominence left base) Echocardiogram Date: 10/24/18 EF: 55 - 60% LV Function: normal Other Findings: + LVH
--- NOTE | 2018-11-09 12:08 | History and Physical Report ---
DATE OF ADMISSION: 11/09/2018 CHIEF COMPLAINT: Back pain, lower extremity difficulty, paresthesias, numbness and tingling, inability to stand, inability to ambulate. She is set up for a lumbar spine laminectomy L3-L4 and L4-L5. ALLERGIES: LATEX, PENICILLIN. MEDICATIONS: Calcium, Lipitor, levothyroxine, Dilaudid. PAST MEDICAL HISTORY: Positive for COPD, coronary artery disease. She has some insomnia. She has no carcinoma or diabetes mellitus. SOCIAL HISTORY: Nonsmoker, non-ETOH user. OBJECTIVE: GENERAL: She is alert, oriented. She is pleasant. She is immensely compromised. She can barely function. VITAL SIGNS: Her blood pressure is 130/80, pulse 80, respirations 16 breaths per minute, heart regular. CARDIAC: Normal S1, S2. LUNGS: Clear. Normal inhalation and exhalation. LABORATORY DATA: Seems to be all in order. Hemoglobin 11.6, hematocrit 35.6. She is 5 feet 2 inches, 140 pounds. Examination demonstrates pain with flexion, extension, pain with walking, inability to stand, inability to ambulate. She has weakness with dorsiflexion and plantarflexion. ASSESSMENT: Severe stenosis L4-L5 and L3-L4. PLAN: Includes a laminectomy L3-L4 and L4-L5.
[~2018-11-10 08:10] MED LIST changes: -CEFAZOLIN 2000MG 2,000 MG/15 ML SYR IV SCH; -CEFAZOLIN: ALLERGY NOTED TO ORDERED MEDICATION SCH; -SODIUM CHLORIDE 0.9% 1,000 ML IV SCH
[2018-11-10] MEDS ORDERED: fentaNYL citrate 100 MCG/2 ML VIAL ONE (08:19)
[2018-11-10] MEDS ORDERED: GELATIN SPONGE SZ 100 ONE (09:24)
[2018-11-10] MEDS ORDERED: BACITRACIN INJ 50,000 UNIT VIAL ONE (09:24)
[2018-11-10] MEDS ORDERED: BUPIVACAINE/EPINEPHRINE 0.5% MPF 1:200,000 30 ML VIAL ONE ×2 (09:24→09:34)
[2018-11-10] MEDS ORDERED: THROMBIN FOR SOLN 20000 UNIT KIT ONE (09:24)
[2018-11-10] MEDS ORDERED: VANCOMYCIN HCL 1000MG/20ML VIAL ONE (09:24)
[2018-11-10] MEDS ORDERED: CEFAZOLIN 2000MG 2,000 MG/15 ML SYR IV ONE (09:32)
[2018-11-10] MEDS ORDERED: CEFAZOLIN 2,000 MG/15 ML IV PUSH IV ONE (09:36)
--- NOTE | 2018-11-10 09:43 | History & Physical Bridge Note ---
Date of Service November 10, 2018 History & Physical Bridge Note I have examined the patient, reviewed the History & Physical and in the interval since the performance of the History & Physical I have noted the following changes of clinical significance: no changes noted
[2018-11-10] MEDS ORDERED: LABETALOL HCL IV 5 MG/ML 20ML IV PRN (09:59)
[2018-11-10] MEDS ORDERED: ONDANSETRON INJ 2 MG/ML 2 ML VIAL IV PRN ×2 (09:59→13:12)
[2018-11-10] MEDS ORDERED: ATROPINE SULFATE 0.1 MG/ML 10ML SYR IV PRN (09:59)
[2018-11-10] MEDS ORDERED: LIDOCAINE HCL 2% 2 ML VIAL/AMP(20MG/ML) INFIL ONE (10:32)
[2018-11-10] MEDS ORDERED: NEOSTIGMINE METHYLSULFATE 5 MG/5 ML SYR ONE (10:32)
[2018-11-10] MEDS ORDERED: ePHEDrine sulfate 50 MG/ML SYR ONE (10:32)
[2018-11-10] MEDS ORDERED: HYDROmorphone INJ 2 MG/ML SYR/VIAL ONE (10:32)
[2018-11-10] MEDS ORDERED: GLYCOPYRROLATE 0.2 MG/ML VIAL ONE (10:32)
[2018-11-10] MEDS ORDERED: DEXAMETHASONE SOD INJ 4 MG/ML VIAL ONE (10:32)
[2018-11-10] MEDS ORDERED: PHENYLEPHRINE 100MCG/ML 5ML SYR ONE (10:32)
[2018-11-10] MEDS ORDERED: LARYING-O-JET KIT (LTA) ONE (10:32)
[2018-11-10] MEDS ORDERED: PROPOFOL IV EMULSION 10 MG/ML 20 ML VIAL IV ONE (10:32)
[2018-11-10] MEDS ORDERED: ROCURONIUM BROMIDE 10 MG/ML 5 ML VIAL ONE (10:32)
[2018-11-10] MEDS ORDERED: ONDANSETRON INJ 2 MG/ML 2 ML VIAL ONE (10:32)
--- NOTE | 2018-11-10 11:06 | Fluoroscopy Report ---
FL lumbar spine 2-3V CLINICAL HISTORY: L3-L4,L4-L5 LAMINECTOMY COMPARISON STUDY: Lumbar spine MRI October 10, 2018. FLUOROSCOPY TIME: 5 seconds. FLUOROSCOPIC IMAGES: 1. FINDINGS: Single lateral fluoroscopic image demonstrates surgical retractors. A surgical instrument i s directed over the posterior elements at the L3 level while an additional instrument is directed tow cristhian the posterior elements at the L5 level. IMPRESSION: Fluoroscopy provided for lumbar laminectomy. Electronically signed by: Joseph Grigsby M.D. 11/10/2018 11:05 AM
--- NOTE | 2018-11-10 11:38 | Post Operative Brief Note ---
PG Immediate Post Op with CF Date of Surgery November 10, 2018 Pre & Post Diagnosis Operation Date: 11/10/18 09:50 Pre-Op Diagnosis: LUMBAR SPINAL STENOSIS L3-5 Post-Op Diagnosis: LUMBAR SPINAL STENOSIS L3-5 Procedure Operation Date: 11/10/18 09:50 Actual Procedures p L3-L4, L4-L5 Laminectomy, fusion L3-5(Not Applicable) - Ignacio Nolen DO Surgeon Ignacio Nolen DO Computer Hardware Designer dee Estimated Blood Loss 75 Findings Consistent with Post-Op Diagnosis Specimens Specimen Description: no specimen per surgeon Drains Nunez Catheter and Hemovac Drain
[2018-11-10] MEDS ORDERED: LABETALOL HCL IV 5 MG/ML 20ML IV ONE (11:42)
[2018-11-10] MEDS: HYDROmorphone INJ 1 MG/ML SYRINGE IV PRN ×3 (11:53→12:08)
--- NOTE | 2018-11-10 12:13 | Operative Report ---
DATE OF OPERATION: 11/10/2018 PREOPERATIVE DIAGNOSES: Spondylolisthesis, degenerative scoliosis and severe stenosis of the spine. POSTOPERATIVE DIAGNOSES: Spondylolisthesis, degenerative scoliosis and severe stenosis of the spine. PROCEDURE: Include: 1. Posterior decompression of the spine, a laminectomy L3-L4, L4-L5 lumbar spine, foraminotomy, partial facetectomy. 2. Posterolateral fusion L3, L4, L5, a 2-level fusion. SURGEON: Ignacio Nolen DO. PSYCHIATRIC ASSISTANT: Ezekiel Us PA-C. DESCRIPTION OF PROCEDURE: The patient was identified in the preop holding area and a bridge note provided. She was brought back to the operating room, a general intubated anesthetic provided to the patient. Nunez catheter administered. Antibiotics administered. Placed prone on the Du table. She was scrubbed, prepped and draped sterile. We made a skin incision and fascial incision. Radiographically, we came down on the interval between 5 and 3. We decompressed the neural elements meticulously with a curette and rongeur, getting rid of a significant amount of ligamentum flavum hypertrophy and bone. There was no disk herniation. I was pleased with the decompression bilaterally. We irrigated thoroughly. Because of little instability pattern, I thought it was prudent to fuse the spine. I did not think it was grossly unstable to need pedicle screws, but I was able to safely get some posterolateral old fashion fusion with bone graft over on the transverse process of L3, 4 and 5. This was a combination of DBM and autogenous morcellized bone graft. We then irrigated again. We closed over vancomycin powder. We closed over a drain with 1 Vicryl, 2-0 and 3-0 nylon on the skin. Sterile dressings applied. The patient returned to PACU stable. BLOOD LOSS: 75 mL COMPLICATIONS: None. Sponge and needle count correct and bone graft was autograft, autogenous morcellized bone graft and DBM. I attest to the content of the Intraoperative Record and any orders documented therein. Any exception s are noted below.
--- NOTE | 2018-11-10 12:29 | Anesthesiology Progress Note ---
Date of Service November 10, 2018 Anesthesia Post Procedure Vital Signs Vital Signs: Temp Pulse Pulse Resp BP Pulse Ox 11/10/18 12:25 53 L 18 134/65 96 11/10/18 12:15 51 L 18 133/69 95 11/10/18 12:05 55 L 14 140/71 95 11/10/18 11:55 56 L 15 156/90 H 100 11/10/18 11:45 56 L 13 144/82 H 100 11/10/18 11:35 36.4 C L 60 12 137/74 100 11/10/18 08:43 36.8 C 73 18 141/67 H 98 Pain Intensity Right Leg: Pain Intensity: 2 Lower Back: Pain Intensity: 3 Transfer of Care Handoff Completed per policy Notes Mental Status: alert / awake / arousable Patient Amnestic to Procedure: Yes Nausea / Vomiting: adequately controlled Pain: adequately controlled Airway Patency, RR, SpO2: stable & adequate BP & HR: stable & adequate Hydration State: stable & adequate Anesthetic Complications: no major complications apparent
[2018-11-10] MEDS ORDERED: HYDROmorphone INJ 1 MG/ML SYRINGE IV PRN ×2 (13:12)
[2018-11-10] MEDS ORDERED: ACETAMINOPHEN 1,000 MG/100 ML VIAL IV PRN (13:12)
[2018-11-10] MEDS ORDERED: MAGNESIUM HYDROXIDE SUSP 30 ML UDC PO PRN (13:12)
[2018-11-10] MEDS: SODIUM CHLORIDE 0.9% 1000ML 1,000 ML IV SCH (14:14)
[2018-11-10] MEDS: CEFAZOLIN 2000MG 2,000 MG/15 ML SYR IV SCH (18:08)
[2018-11-10] MEDS: DOCUSATE SODIUM 100 MG CAP PO SCH (20:26)
[2018-11-10] MEDS: OXYCODONE HCL IR 5 MG TAB (IMMEDIATE RELEASE) PO PRN (20:26)
[2018-11-10] MEDS: TRAZODONE HCL 100 MG TAB PO SCH (22:45)
[2018-11-10] MEDS: ZOLPIDEM TARTRATE 10 MG TAB PO PRN (22:46)
[2018-11-11] MEDS: CEFAZOLIN 2000MG 2,000 MG/15 ML SYR IV SCH ×2 (02:12→10:30)
[2018-11-11] MEDS: SODIUM CHLORIDE 0.9% 1000ML 1,000 ML IV SCH (02:12)
[2018-11-11] MEDS: LEVOTHYROXINE SODIUM 50 MCG TABLET PO SCH (06:25)
[2018-11-11] MEDS: OXYCODONE HCL IR 5 MG TAB (IMMEDIATE RELEASE) PO PRN ×4 (07:31→21:23)
[2018-11-11] MEDS: ATORVASTATIN 40 MG TAB PO SCH (08:45)
[2018-11-11] MEDS: PANTOprazole 40 MG TAB PO SCH (08:45)
[2018-11-11] MEDS: DOCUSATE SODIUM 100 MG CAP PO SCH ×2 (08:45→20:34)
[2018-11-11] MEDS: TRAZODONE HCL 100 MG TAB PO SCH (20:34)
[2018-11-11] MEDS: ZOLPIDEM TARTRATE 10 MG TAB PO PRN (21:23)
[2018-11-12] MEDS: LEVOTHYROXINE SODIUM 50 MCG TABLET PO SCH (05:52)
[2018-11-12] MEDS ORDERED: bisacodyL 5 MG TABEC PO PRN (06:00)
[2018-11-12 06:58] VITALS: BP 106/66; PULSE 79; TEMP 99; O2SAT 96
[2018-11-12] MEDS: DOCUSATE SODIUM 100 MG CAP PO SCH (07:38)
[2018-11-12] MEDS: ATORVASTATIN 40 MG TAB PO SCH (07:38)
[2018-11-12] MEDS: PANTOprazole 40 MG TAB PO SCH (07:38)
[2018-11-12] MEDS: OXYCODONE HCL IR 5 MG TAB (IMMEDIATE RELEASE) PO PRN ×2 (08:28→10:46)
--- NOTE | 2018-11-26 08:06 | Discharge Summary ---
SUBJECTIVE: She is alert, oriented. Discharged home on 11/12/2018. She had minimal complaints of pain, no shortness of breath or chest pain. Pain seemed to be improved. OBJECTIVE: Vital signs stable. ASSESSMENT: Status post reconstructive spine surgery. PLAN: She will be discharged home today. Instructions and precautions were provided. Followup examination in the office will be done in approximately 2 weeks.
== END 2018-11-12 11:36 | DRG 460 ==
LOC: ASU 08:10 → 3E 11:44